=== PATIENT | female | born 1995 | race Caucasian/White ===

== ENCOUNTER → 2019-05-13 | Outpatient (CLI) | payer BC, OTHER ==
--- NOTE | 2019-05-14 09:37 | US ---
EXAMINATION TYPE: US abdomen comp/pelvis limited DATE OF EXAM: 05/13/2019 COMPARISON: NONE CLINICAL HISTORY: R10.9 Abdominal pain. Pain around umbilicus. EXAM MEASUREMENTS: Liver Length: 14.7 cm Gallbladder Wall: Surgically absent cm CBD: .4 cm Spleen: 11.5 cm Right Kidney: 10.3 x 4.8 x 5.5 cm Left Kidney: 12.1 x 5.1 x 4.8 cm Pancreas: Obscured by bowel gas Liver: wnl Gallbladder: Surgically absent CBD: wnl Spleen: wnl Right Kidney: wnl Left Kidney: wnl Upper IVC: wnl Abd Aorta: Proximal obscured by bowel gas. Bladder: wnl Bilateral Jets Seen Yes IMPRESSION: No distinct abnormality seen.
== END ==
LOC: RADUSWWP 15:30
PROVIDERS: ATTEND Family Medicine
DX: R10.9 Unspecified abdominal pain (principal)
CPT/HCPCS: 76700; 76857

== ENCOUNTER → 2020-07-30 | Outpatient (CLI) | payer BC, OTHER ==
--- NOTE | 2020-07-30 16:18 | US ---
EXAMINATION TYPE: US thyroid st tissue head/neck DATE OF EXAM: 07/30/2020 COMPARISON: NONE CLINICAL HISTORY: 24-year-old female E05.00 thyroid toxicosis, Graves Disease. Graves disease per pat ient. TECHNIQUE: Multiple sonographic images of the thyroid gland are obtained. FINDINGS: GLAND SIZE: Right Lobe: 4.6 x 1.3 x 1.5 cm Overall Parenchyma: heterogenous Left Lobe: 4.1 x 1.5 x 1.3 cm Overall Parenchyma: heterogeneous Isthmus Thickness: 0.4 cm Mild diffuse glandular hyperemia is noted. NODULES RIGHT: # of nodules measured on right: 0 LEFT: # of nodules measured on left: 0 ISTHMUS: # of nodules measured in the isthmus: 0 Bilateral neck scanned, no evidence of lymphadenopathy. IMPRESSION: Heterogeneous parenchyma with hyperemia. Findings may be seen with diffuse thyroiditis/Graves' diseas e. No discrete nodule.
== END | disposition home or self-care (01) ==
LOC: RADUSWWP 15:11
PROVIDERS: ATTEND Family Medicine
DX: R68.89 Other general symptoms and signs (principal); E05.00 Thyrotoxicosis with diffuse goiter without thyrotoxic crisis or storm
CPT/HCPCS: 76536

== ENCOUNTER → 2020-08-22 | Outpatient (CLI) | payer BC, OTHER | END | disposition home or self-care (01) | LOC: LABPAT 15:09 | PROVIDERS: ATTEND Surgery | DX: Z01.818 Encounter for other preprocedural examination (principal); Z01.812 Encounter for preprocedural laboratory examination; Z20.822 Contact with and (suspected) exposure to COVID-19; K46.9 Unspecified abdominal hernia without obstruction or gangrene | CPT/HCPCS: 93005; U0003; C9803; 86850; 86900; 86901 ==

== ENCOUNTER 2020-08-23 06:49 | Day surgery (SDC) | payer BC, OTHER ==
[2020-08-20 11:11] VITALS: BMI 31.8
[~2020-08-23 06:49] MED LIST: HEPARIN SODIUM,PORCINE 5,000 UNIT/ML 1 ML VIAL SQ PRN
[2020-08-23 07:13] VITALS: RESP 16
[2020-08-23] MEDS ORDERED: LACTATED RINGERS 1,000 ML IV ONE ×2 (07:19→10:57)
[2020-08-23] MEDS ORDERED: ONDANSETRON 4 MG/2 ML VIAL ONE (07:21)
[2020-08-23] MEDS: ONDANSETRON 4 MG/2 ML VIAL IVP ONE ×2 (07:28→10:57)
[2020-08-23] MEDS ORDERED: ONDANSETRON 4 MG/2 ML VIAL IVP ONE (07:28)
[2020-08-23] MEDS ORDERED: DEXAMETHASONE SOD PHOSPHATE 4 MG/ML 1 ML VIAL IV ONE (07:28)
[2020-08-23] MEDS ORDERED: MIDAZOLAM 2 MG/2 ML VIAL IV ONE (07:35)
[2020-08-23] MEDS ORDERED: fentaNYL (PF) 50 MCG/ML 2 ML AMP IV ONE (07:35)
[2020-08-23] MEDS ORDERED: SUCCINYLCHOLINE CHLORIDE 100 MG/5 ML SYR IV ONE (08:30)
[2020-08-23] MEDS ORDERED: fentaNYL (PF) 50 MCG/ML 2 ML AMP ONE (08:30)
[2020-08-23] MEDS ORDERED: LIDOCAINE 1% INJ 10MG/ML (20 ML MDV) ONE (08:30)
[2020-08-23] MEDS ORDERED: METOPROLOL TARTRATE 5 MG/5 ML VIAL IVP ONE (08:30)
[2020-08-23] MEDS ORDERED: DEXAMETHASONE SOD PHOSPHATE 4 MG/ML 1 ML VIAL ONE (08:30)
[2020-08-23] MEDS ORDERED: PROPOFOL 10 MG/ML 20 ML VIAL IV ONE (08:30)
[2020-08-23] MEDS ORDERED: ROCURONIUM 10 MG/ML (5 ML VIAL) IV ONE (08:30)
[2020-08-23] MEDS ORDERED: NEOSTIGMINE 1 MG/ML 10 ML VIAL ONE (08:30)
[2020-08-23] MEDS ORDERED: HYDROmorphone (PF) 1 MG/ML ONE (08:30)
[2020-08-23] MEDS ORDERED: GLYCOPYRROLATE 0.2 MG/ML 2 ML VIAL ONE (08:30)
[2020-08-23] MEDS ORDERED: ROPIVACAINE 5 MG/ML 30 ML VIAL ONE (08:30)
[2020-08-23] MEDS ORDERED: MIDAZOLAM 2 MG/2 ML VIAL ONE (08:30)
[2020-08-23] MEDS ORDERED: BUPIVACAINE-EPI 0.5%-1:200,000 10 ML VIAL SQ ONE ×2 (08:58)
--- NOTE | 2020-08-23 09:10 | P.ANPRN ---
Procedure Note - Anesthesia - Nerve Block Performed Bilateral Rectus Abdominis Single Time Out Performed: Yes Date of Procedure: 08/23/20 Procedure Start Time: 07:39 Procedure Stop Time: 07:44 Location of Patient: PreOp Indication: Requested by Surgeon Specifically requested for management of pain by DrArnold: Paola Garcia Sedation Type: Sedate with meaningful contact maintained Preparation: Sterile Prep Position: Supine Needle Types: Pajunk Needle Gauge: 21 Ultrasound used to visualize needle placement: Yes Ultrasound used to observe medication spread: Yes Injectate: Other (see comment) (15 ml perside plus 5 ml of 0.9% PF NS +Dexamethason 4 mg) Blood Aspirated: No Pain Paresthesia on Injection Noted: No Resistance on Injection: Normal Image Stored and Saved: Yes Events: Uneventful and Well Tolerated (the block done to minimize post op opioid use ,part of multimodel pain management technique)
--- NOTE | 2020-08-23 09:54 | P.OP ---
Date of Procedure: 08/23/20 Preoperative Diagnosis: Umbilical hernia Postoperative Diagnosis: Umbilical hernia Procedure(s) Performed: Robotic umbilical hernia repair with mesh placement Anesthesia: KELLE Surgeon: Paola Garcia Pathology: other (Hernia sac) Condition: stable Disposition: same day Indications for Procedure: 24-year-old female presented to the surgical office with complaints of pain around the umbilicus. On exam, patient was found to have an umbilical hernia. Patient has requested surgical repair. She was explained risks, benefits and alternatives to the procedure and did provide consent prior to attending the operating suite. Operative Findings: Umbilical hernia Description of Procedure: The patient was brought to the operating suite and placed in supine position. Gen. anesthesia with endotracheal intubation was performed as per anesthesia team. The right arm was tucked against the body and a footboard was applied. The patient was prepped and draped in regular sterile fashion. A timeout was performed to verify correct patient and correct procedure. Patient was confirmed received perioperative IV antibiotics, bilateral SCDs and 5000 units of subcutaneous separate for DVT prophylaxis. A 5 mm skin incision was made along the left midaxillary line at [place] and the abdomen was entered under direct visualization using a Visiport. Pneumoperitoneum was achieved. The umbilical hernia was clearly visualized. An additional 8 mm trocar was placed in left lower abdomen and a 12 mm trocar was placed in left mid abdomen. The initial 5 mm trocar was upsized to an 8 mm trocar. The da Tara robot was then docked. The 30 robotic camera was used. A robotic prograsp and monopolar scissors were inserted through 8 mm robotic trochars. The hernia defect contained preperitoneal fat which was reduced using gentle traction and counte rtraction method along with cautery. The falciform ligament was divided using monopolar scissors close to the anterior abdominal wall to create a landing zone for the mesh. A XMLAW circular mesh was rolled and introduced to the abdominal cavity via the 12 mm trocar. The hernia defect was closed primarily with running sutures using 0V lock by taking 17 m by on the fascia on either side of the defect. A Gaurang Howell device was inserted through the middle of the hernia defect and the stay suture on the mesh was grasped to elevate the mesh against the anterior abdominal wall. The balloon was then inflated. The mesh was circumferentially sutured to the peritoneum of the anterior abdominal wall using 20V lock without any folds or kinks. The robot was then undocked. Laparoscopic 30 camera was reinserted. All trocar sites were examined. No evidence of bleeding. All sutures were removed from the abdomen. The 12 mm trocar site was closed using transfer fascial sutures of 0 Vicryl which was placed using a Gaurang Howell device under direct visualization. The pneumoperitoneum was evacuated and all skin incisions were closed using a 4-0 Monocryl followed by Dermabond skin glue. The sponge, instrument and needle count were correct 2. Abdominal binder was applied. The patient was extubated taken to postanesthesia care unit in stable condition.
[2020-08-23 10:12] VITALS: TEMP 97.8
[2020-08-23] MEDS: HYDROmorphone 0.5 MG/0.5 ML SYRINGE IVP ONE ×2 (10:28→10:45)
[2020-08-23] MEDS ORDERED: HYDROcodone/APAP 5-325MG 1 EACH TAB ONE (11:42)
[2020-08-23] MEDS ORDERED: HYDROcodone/APAP 5-325MG 1 EACH TAB PO ONE (11:45)
[2020-08-23 12:08] VITALS: BP 117/78; PULSE 61
== END 2020-08-23 12:54 | disposition home or self-care (01) ==
LOC: OR 06:49
PROVIDERS: ATTEND Surgery
DX: K42.9 Umbilical hernia without obstruction or gangrene (principal); I10 Essential (primary) hypertension; J45.909 Unspecified asthma, uncomplicated; E07.9 Disorder of thyroid, unspecified; Z91.013 Allergy to seafood; Z91.09 Other allergy status, other than to drugs and biological substances; Z79.899 Other long term (current) drug therapy; G43.909 Migraine, unspecified, not intractable, without status migrainosus; Z90.49 Acquired absence of other specified parts of digestive tract
CPT/HCPCS: 49652; 81025; 64488; 88302; C1781; J2250; J1644; J1100; J2710; J0690; J2405; J2001; J3010; J1170 ×2; J2795; J0330; J2704; 64486; 86850; 86900; 86901

== ENCOUNTER → 2023-05-02 | Outpatient (CLI) | payer OTHER ==
--- NOTE | 2023-05-03 13:52 | MR ---
EXAMINATION TYPE: MR brain and iac wo/w con DATE OF EXAM: 05/02/2023 COMPARISON: None HISTORY: Acute nonsuppurative otitis media, hx of ear surgery CONTRAST: Performed utilizing 8 mL intravenous Gadobutrol gadolinium contrast. TECHNIQUE: Multiplanar, multiecho imaging on a 3.0 Martha magnet is performed through the brain. Atte ntion is paid to the internal auditory canals with thin section imaging. Postcontrast imaging is per formed through the internal auditory canals. FINDINGS:Craniovertebral junction is normal. The pituitary is normal. Diffusion-weighted imaging is performed. No suspicious hyperintensity is present to suggest an acute intracranial infarct or acute ischemic area. Signal within the brain appears normal. No suspicious hyperintensities identified. No masses identifi ed. Cerebellopontine angles are clear. Thin section imaging is performed through the internal auditory canals and cerebellar pontine angles. The internal auditory canals appear normal without expansion or erosion. No significant middle ear fluid collection identified. Postcontrast imaging was performed. No suspicious enhancement is evident within the internal audito ry canals or the included portions of the brain. Note is made of thick mucosal thickening through the bilateral maxillary sinuses with milder mucosal thickening within ethmoid air cells. Minimal mucosal thickening is identified within the sphenoid sin uses. No suspicious air-fluid levels are identified. Minimal fluid may be within right mastoid air ce lls. Left mastoid air cells are clear. IMPRESSION: 1. No suspicious middle ear or internal auditory canal abnormalities. 2. MRI of the brain appears unremarkable. 3. Mucosal thickening through maxillary sinuses to lesser degree ethmoid air cells and sphenoid sinus es. Consider chronic sinusitis. 4. Very minimal fluid within the right inferior lateral mastoid air cells. Mild mastoiditis is not ex cluded.
== END | disposition home or self-care (01) ==
LOC: RADMRIMAIN 12:27
PROVIDERS: ATTEND Family Medicine
DX: H65.199 Other acute nonsuppurative otitis media, unspecified ear (principal); J34.89 Other specified disorders of nose and nasal sinuses; H70.91 Unspecified mastoiditis, right ear
CPT/HCPCS: 70553; A9585